=== PATIENT | female | born 1970 | race Caucasian/White ===

== ENCOUNTER → 2022-12-21 | Outpatient (CLI) | payer OTHER ==
[~2022-12-21] MED LIST: ACICLOVIR PO; CLONAZEPAM1 MG PO; DETROL2 MG PO; KETO10TA2 PO; Mylicon 125MG PO; OMEPRAZOLE40 MG PO; OXYC1TAB9 PO; SENNA8.6 MG PO; ZOLOFT50 MG PO; [UNRECOGNIZED DRUG - OTHER] PO
== END | disposition home or self-care (01) ==
LOC: SONOGRAMA 10:35
PROVIDERS: ATTEND Pathology Anatomic Pathology & Clinical Pathology
DX: D36.0 Benign neoplasm of lymph nodes (principal)